=== PATIENT | male | born 1965 | race Hispanic/Latino ===

== ENCOUNTER 2018-03-28 15:04 | Outpatient (CLI) | payer OTHER ==
--- NOTE | 2018-03-28 15:48 | XRay Report ---
ROUTINE CHEST, TWO VIEWS: HISTORY: Cough. The trachea, heart, mediastinal contour, lung alvarado and bony thorax are unremarkable. IMPRESSION: Unremarkable chest x-ray.
== END 2018-03-28 15:05 | disposition home or self-care (01) ==
LOC: XRAY 15:04
PROVIDERS: ATTEND Family Medicine
DX: R05 Cough (principal); Z88.0 Allergy status to penicillin
CPT/HCPCS: 71046